=== PATIENT | male | born 1985 | race Caucasian/White ===

== ENCOUNTER 2018-11-22 10:53 | Emergency (ER) | payer OTHER ==
[2018-11-22] MEDS ORDERED: KETOROLAC TROMETHAMINE 30MG/ML ONE (11:17)
== END 2018-11-22 11:58 | disposition home or self-care (01) ==
LOC: EDH 10:53
DX: S69.92XA Unspecified injury of left wrist, hand and finger(s), initial encounter (principal); Z98.890 Other specified postprocedural states; X50.0XXA Overexertion from strenuous movement or load, initial encounter; Y93.89 Activity, other specified; Y92.89 Other specified places as the place of occurrence of the external cause; Y99.0 Civilian activity done for income or pay
CPT/HCPCS: 29125; 73110; 96372; 99283; J1885

== ENCOUNTER → 2019-01-10 | Outpatient (CLI) | payer OTHER | END | disposition home or self-care (01) | LOC: RAH 07:58 | PROVIDERS: ATTEND Orthopaedic Surgery | DX: S66.912A Strain of unspecified muscle, fascia and tendon at wrist and hand level, left hand, initial encounter (principal); S63.502A Unspecified sprain of left wrist, initial encounter; X58.XXXA Exposure to other specified factors, initial encounter; Y93.89 Activity, other specified; Y92.89 Other specified places as the place of occurrence of the external cause; Y99.8 Other external cause status | CPT/HCPCS: 73221 ==